=== PATIENT | male | born 1990 | race Caucasian/White ===

== ENCOUNTER 2018-03-22 13:56 | Emergency (ER) | payer OTHER ==
[2018-03-22] MEDS ORDERED: Diphtheria,Pertussis(Acell),Tetanus Vaccine 0.5 ML Syringe IM ONE (14:01)
[2018-03-22] MEDS ORDERED: Lidocaine 1% 30 ML SDV INJECT ONE (14:01)
[2018-03-22] MEDS ORDERED: Sodium Chloride 0.9% 10 ML Syringe FLUSH PRN (15:04)
[2018-03-22] MEDS ORDERED: ceFAZolin 1 GM Vial IVPUSH ONE (15:05)
--- NOTE | 2018-03-22 15:17 | EDM.PDOC ---
ED HPI GENERAL MEDICAL PROBLEM - General Chief Complaint: Laceration Stated Complaint: LACERATION TO HAND Time Seen by Provider: 03/22/18 13:56 Source of Information: Reports: Patient History Limitations: Reports: No Limitations - History of Present Illness INITIAL COMMENTS - FREE TEXT/NARRATIVE: PtPayton presents to ER with complaints of drill injury to his L thumb. He states that he works construction. He was attempting to drill into a steel stud and the drillbit slipped, stiking him in the dorsum of the L thumb. He denies any paresthesia distal to the area of injury. He states that he in unable to fully extend the thumb at the IP joint. Onset: Today Location: Reports: Upper Extremity, Left Quality: Reports: Sharp Severity: Moderate Improves with: Reports: Rest Worsens with: Reports: Movement - Related Data Allergies Allergy/AdvReac Type Severity Reaction Status Date / Time No Known Allergies Allergy Verified 03/22/18 14:01 Home Meds: Home Meds . [No Known Home Meds] 03/22/18 [History] Past Medical History - Past Health History Medical/Surgical History: Denies Medical/Surgical History Social & Family History - Tobacco Use Smoking Status *Q: Current Every Day Smoker Years of Tobacco use: 2 Packs/Tins Daily: 0.5 - Recreational Drug Use Recreational Drug Use: No ED ROS GENERAL - Review of Systems Review Of Systems: See Below Constitutional: Reports: No Symptoms HEENT: Reports: No Symptoms Respiratory: Reports: No Symptoms Cardiovascular: Reports: No Symptoms Endocrine: Reports: No Symptoms GI/Abdominal: Reports: No Symptoms : Reports: No Symptoms Musculoskeletal: Reports: Hand Pain, Other (injury to the dorsum and lateral aspect of the L thumb) Neurological: Reports: No Symptoms Psychiatric: Reports: No Symptoms Hematologic/Lymphatic: Reports: No Symptoms Immunologic: Reports: No Symptoms ED EXAM, SKIN/RASH Exam: See Below Exam Limited By: No Limitations General Appearance: Alert, WD/WN, No Apparent Distress Respiratory/Chest: No Respiratory Distress, Lungs Clear, Normal Breath Sounds, No Accessory Muscle Use, Chest Non-Tender Cardiovascular: Normal Peripheral Pulses, Regular Rate, Rhythm, No Edema, No Gallop, No JVD, No Murmur, No Rub Peripheral Pulses: 4+: Radial (L), Radial (R) Extremities: Normal Capillary Refill, Limited Range of Motion, Other (large, deep lacerations forming an avulsion and extending laterally and proximally along the lateral aspect of the thumb area noted. Limited exploration of the laceration reveals inablility to extend the thumb at the IP joint. ) Neurological: Alert, Oriented, CN II-XII Intact, Normal Cognition, Normal Gait, Normal Reflexes, No Motor/Sensory Deficits Skin: Warm, Dry, Intact, Normal Color, No Rash ED SKIN PROCEDURES - Additional/Other Procedure(s) Other (Free Text) Procedure(s): Digital block was placed at the base of the L thumb using sterile technique. Once adequate anesthesia was achieved, the laceration was cleansed with normal saline and chlorhexidine. Course - Vital Signs Last Recorded V/S: Last Vital Signs Temp 37.3 C 03/22/18 13:56 Pulse 73 03/22/18 13:56 Resp 18 03/22/18 13:56 BP 123/59 L 03/22/18 13:56 Pulse Ox 96 03/22/18 13:56 - Orders/Labs/Meds Orders: Active Orders 24 hr Category Date Time Status Vaccines to be Administered [RC] PER UNIT ROUTINE Care 03/22/18 14:02 Active Hand Comp Min 3V Lt [CR] Stat Exams 03/22/18 14:02 Taken Sodium Chloride 0.9% [Saline Flush] Med 03/22/18 15:04 Active 10 ml FLUSH ASDIRECTED PRN Peripheral IV Insertion Adult [OM.PC] Routine Oth 03/22/18 15:04 Ordered Medication Orders Sodium Chloride (Saline Flush) 10 ml FLUSH ASDIRECTED PRN PRN Reason: Keep Vein Open Meds: Medications Generic Name Dose Route Start Last Admin Trade Name Freq PRN Reason Stop Dose Admin Sodium Chloride 10 ml 03/22/18 15:04 Saline Flush FLUSH ASDIRECTED PRN Keep Vein Open Discontinued Medications Generic Name Dose Route Start Last Admin Trade Name Freq PRN Reason Stop Dose Admin Cefazolin Sodium 1 gm 03/22/18 15:05 Ancef IVPUSH 03/22/18 15:06 ONETIME ONE Diphtheria/Tetanus/Acell Pertussis 0.5 ml 03/22/18 14:01 03/22/18 14:48 Adacel IM 03/22/18 14:02 0.5 ml .ONCE ONE Administration Lidocaine HCl 30 ml 03/22/18 14:01 03/22/18 14:05 Xylocaine-Mpf 1% INJECT 03/22/18 14:02 30 ml ONETIME ONE Administration Departure - Departure Time of Disposition: 15:31 Disposition: DC/Tfer to Acute Hospital 02 Clinical Impression: Laceration - Discharge Information Referrals: PCP,None [Primary Care Provider] - Forms: ED Department Discharge, Interfacility Transfer MARIYAALA - My Orders Last 24 Hours: My Active Orders 03/22/18 14:02 Vaccines to be Administered [RC] PER UNIT ROUTINE Hand Comp Min 3V Lt [CR] Stat 03/22/18 15:04 Sodium Chloride 0.9% [Saline Flush] 10 ml FLUSH ASDIRECTED PRN Peripheral IV Insertion Adult [OM.PC] Routine - Assessment/Plan Last 24 Hours: My Active Orders 03/22/18 14:02 Vaccines to be Administered [RC] PER UNIT ROUTINE Hand Comp Min 3V Lt [CR] Stat 03/22/18 15:04 Sodium Chloride 0.9% [Saline Flush] 10 ml FLUSH ASDIRECTED PRN Peripheral IV Insertion Adult [OM.PC] Routine
== END 2018-03-22 15:37 | disposition short-term general hospital (02) ==
LOC: VM.ED 13:56
DX: S61.012A Laceration without foreign body of left thumb without damage to nail, initial encounter (principal); Z23 Encounter for immunization; W29.8XXA Contact with other powered hand tools and household machinery, initial encounter
CPT/HCPCS: 64450; 73130; 90471; 90715; 96374; 99284; J0690